=== PATIENT | female | born 1975 | race Caucasian/White ===

== ENCOUNTER 2018-05-11 13:43 | Emergency (ER) | payer BC, OTHER ==
[~2018-05-11] VITALS: Ht 157.5 cm; Wt 120.0 kg
[~2018-05-11 13:43] MED LIST: CYCL1PAK PO; GABA300C3 PO; HYDR10SO PO; HYDR12.56 PO; LISI-363 PO; METF500 PO; PSEU1LIQ2 PO
[2018-05-11] MEDS ORDERED: IOHEXOL 350 MG/ML 10 ML VIAL (for RAD DIAG) IVCONTRAST ONE (13:44)
[2018-05-11 13:50] VITALS: BP 167/75; PULSE 96; RESP 16; TEMP 98; O2SAT 99
[2018-05-11] MEDS ORDERED: LISI10TA3 PO (14:03)
[2018-05-11] MEDS ORDERED: HYDR12.57 PO (14:03)
[2018-05-11] MEDS ORDERED: SODIUM CHLOR 0.9% 1000 ML INJ 1,000 ML IV SCH (14:30)
[2018-05-11] MEDS ORDERED: ONDANSETRON ODT 4 MG TAB PO ONE (14:30)
[2018-05-11 14:31] VITALS: O2SAT 100
--- NOTE | 2018-05-11 14:33 | PD ---
HPI Chief Complaint: Chest Pain Time Seen by Provider: 14:11 Travel History International Travel<30 days: No Contact w/Intl Traveler<30days: No Traveled to known affect area: No History of Present Illness HPI 43-year-old female complains of left-sided chest pain. Patient states that just pain started last night. Patient states the pain is pressure pain intermittent pain localized to the left chest. Patient denies any pain radiation. Patient denies any palpitation diaphoresis. patient denies any fever chills. Patient denies any coughing congestion. Patient states that she has intermittent nausea for the past 3 days. Patient was seen at [facility] and had blood tests and gallbladder ultrasound done yesterday. Patient states that she was told that she has inflamed gallbladder. Patient was given prescription for tramadol and Zofran. Patient states that she is not having left-sided chest pain since last night. Patient states that she had persistent nausea and generalized malaise since this morning. Patient has history of hypertension. Patient denies history of diabetes or hyperlipidemia. Patient is a smoker. Patient denies family history of heart disease. Patient denies any chest pain now. PFSH Past Medical History Cancer: No Cardiovascular Problems: No Diabetes: No Endocrine: Yes (POS) Genitourinary: Yes Hepatitis: No Hiatal Hernia: No Hypertension: Yes Immune Disorder: No Musculoskeletal: No Neurologic: Yes (NUMBNESS L LEG WITH PAIN) Psychiatric: No Reproductive: Yes (POLYCYSTIC OVARIAN SYNDROME) Respiratory: No Immunizations Current: No Thyroid Disease: No Tetanus Vaccination: Unknown Influenza Vaccination: Yes ?: Not Tubal Ligation: Yes Past Surgical History Abdominal Surgery: Yes (, TUBAL) AICD: No Section: Yes Gynecologic Surgery: Yes (C SECTION TUBAL LIGATION) Joint Replacement: No Oral Surgery: Yes (TONSILLECTOMY) Pacemaker: No Tonsillectomy: Yes Social History Alcohol Use: Yes (RARELY) Tobacco Use: Yes (1 PACK PER WEEK ) Substance Use: No Allergies-Medications (Allergen,Severity, Reaction): Coded Allergies: codeine (Unverified Allergy, Severe, INCREASED HEART RATE AND BLOOD PRESSURE, 07/15/17) Uncoded Allergies: NICKEL SHIRA (Adverse Reaction, Unknown, 06/27/16) PT STATES HER BODY REJECTS SHIRA Reported Meds & Prescriptions Reported Meds & Active Scripts Active Reported Hydrochlorothiazide 12.5 Mg Cap 12.5 Mg PO DAILY Lisinopril 10 Mg Tab 10 Mg PO DAILY Review of Systems General / Constitutional: No: Fever Eyes: No: Visual changes HENT: No: Headaches Cardiovascular: Positive: Chest Pain or Discomfort Respiratory: No: Shortness of Breath Gastrointestinal: Positive: Nausea, Abdominal Pain Genitourinary: No: Dysuria Musculoskeletal: No: Pain Skin: No Rash Neurologic: No: Weakness Psychiatric: No: Depression Endocrine: No: Polydipsia Hematologic/Lymphatic: No: Easy Bruising Physical Exam Narrative GENERAL: Well-nourished, well-developed patient. SKIN: Focused skin assessment warm/dry. HEAD: Normocephalic. EYES: No scleral icterus. No injection or drainage. NECK: Supple, trachea midline. No JVD or lymphadenopathy. CARDIOVASCULAR: Regular rate and rhythm without murmurs, gallops, or rubs. RESPIRATORY: Breath sounds equal bilaterally. No accessory muscle use. GASTROINTESTINAL: Abdomen soft, nondistended. Patient has mild to moderate tenderness in palpation epigastric and right upper quadrant of the abdomen. No rebound tenderness. No mass. MUSCULOSKELETAL: No cyanosis, or edema. BACK: Nontender without obvious deformity. No CVA tenderness. Neurologic exam normal. Data Data Last Documented VS Vital Signs Date Time Temp Pulse Resp B/P (MAP) Pulse Ox O2 Delivery O2 Flow Rate FiO2 05/11/18 15:56 66 16 112/59 (76) 100 Room Air 05/11/18 13:50 98.0 Orders Orders Electrocardiogram (05/11/18 ) Electrocardiogram (05/11/18 14:10) Complete Blood Count With Diff (05/11/18 14:10) Basic Metabolic Panel (Bmp) (05/11/18 14:10) Ckmb (Isoenzyme) Profile (05/11/18 14:10) Troponin I (05/11/18 14:10) Chest, Single Ap (05/11/18 14:10) Iv Access Insert/Monitor (05/11/18 14:10) Ecg Monitoring (05/11/18 14:10) Oximetry (05/11/18 14:10) Ed Urine Pregnancytest Poc (05/11/18 14:10) Urinalysis - C+S If Indicated (05/11/18 14:10) Hepatic Functional Panel (05/11/18 14:24) Lipase (05/11/18 14:24) Ct Abd/Pel W Iv Contrast(Rout) (05/11/18 14:24) Sodium Chlor 0.9% 1000 Ml Inj (Ns 1000 M (05/11/18 14:30) Ondansetron Odt (Zofran Odt) (05/11/18 14:30) CKMB (05/11/18 14:15) CKMB% (05/11/18 14:15) Iohexol 350 Inj (Omnipaque 350 Inj) (05/11/18 13:44) Ed Discharge Order (05/11/18 17:07) Labs Laboratory Tests Test 05/11/18 14:15 White Blood Count 8.2 TH/MM3 Red Blood Count 5.08 MIL/MM3 Hemoglobin 13.9 GM/DL Hematocrit 41.4 % Mean Corpuscular Volume 81.4 FL Mean Corpuscular Hemoglobin 27.4 PG Mean Corpuscular Hemoglobin Concent 33.6 % Red Cell Distribution Width 15.0 % Platelet Count 319 TH/MM3 Mean Platelet Volume 7.7 FL Neutrophils (%) (Auto) 64.5 % Lymphocytes (%) (Auto) 26.1 % Monocytes (%) (Auto) 6.6 % Eosinophils (%) (Auto) 2.3 % Basophils (%) (Auto) 0.5 % Neutrophils # (Auto) 5.3 TH/MM3 Lymphocytes # (Auto) 2.1 TH/MM3 Monocytes # (Auto) 0.5 TH/MM3 Eosinophils # (Auto) 0.2 TH/MM3 Basophils # (Auto) 0.0 TH/MM3 CBC Comment DIFF FINAL Differential Comment Urine Color COLORLESS Urine Turbidity CLEAR Urine pH 6.0 Urine Specific [place] 1.004 Urine Protein NEG mg/dL Urine Glucose (UA) NEG mg/dL Urine Ketones NEG mg/dL Urine Occult Blood NEG Urine Nitrite NEG Urine Bilirubin NEG Urine Urobilinogen LESS THAN 2.0 MG/DL Urine Leukocyte Esterase NEG Urine WBC LESS THAN 1 /hpf Urine Squamous Epithelial Cells 3 /hpf Microscopic Urinalysis Comment CULT NOT INDICATED Blood Urea Nitrogen 10 MG/DL Creatinine 0.91 MG/DL Random Glucose 136 MG/DL Calcium Level 9.0 MG/DL Sodium Level 139 MEQ/L Potassium Level 3.6 MEQ/L Chloride Level 106 MEQ/L Carbon Dioxide Level 22.0 MEQ/L Anion Gap 11 MEQ/L Estimat Glomerular Filtration Rate 68 ML/MIN Total Bilirubin 0.4 MG/DL Direct Bilirubin 0.1 MG/DL Indirect Bilirubin 0.3 MG/DL Aspartate Amino Transf (AST/SGOT) 15 U/L Alanine Aminotransferase (ALT/SGPT) 28 U/L Alkaline Phosphatase 99 U/L Total Creatine Kinase 130 U/L Creatine Kinase MB 0.6 NG/ML Troponin I LESS THAN 0.02 NG/ML Total Protein 8.1 GM/DL Albumin 4.0 GM/DL Lipase 138 U/L [facility] Medical Decision Making Medical Screen Exam Complete: Yes Emergency Medical Condition: Yes Differential Diagnosis Differential diagnosis including musculoskeletal, angina, OH, PE, pneumothorax, gastritis, PUD, pancreatitis, cholecystitis, colitis, UTI, pyelonephritis, nephrolithiasis. Narrative Course 43-year-old female with left-sided chest pain, epigastric and right upper quadrant abdominal pain. Diagnosis Primary Impression: Atypical chest pain Patient Instructions: General Instructions Additional Instructions: Take medication as directed. Follow-up with personal physician. Return immediately if increasing chest pain shortness of breath. Med/Other Pt SpecificInfo: Prescription(s) given Scripts Ondansetron Odt (Zofran Odt) 4 Mg Tab 4 MG SL Q6HR Y for Nausea/Vomiting, #12 TAB 0 Refills Prov: Maxi Grimm MD 05/11/18 Pantoprazole (Protonix) 40 Mg Tab 40 MG PO DAILY for Reflux, #30 TAB 0 Refills Prov: Maxi Grimm MD 05/11/18 Disposition: 01 DISCHARGE HOME Condition: Stable Maxi Grimm MD May 11, 2018 14:33
[2018-05-11 14:34] VITALS: BP 124/58; PULSE 83; RESP 17; O2SAT 97
--- NOTE | 2018-05-11 14:48 | RADRPT ---
EXAM DATE: 05/11/2018 2:45 PM EDT AGE/SEX: 43 years / Female INDICATIONS: Chest tightness, nausea CLINICAL DATA: This is the patient's initial encounter. Patient reports that signs and symptoms have been present for 4 - 6 days and indicates a pain score of 4/10. MEDICAL/SURGICAL HISTORY: . smokes . lumbar spine surgery, tubes tied COMPARISON: [facility], CHEST SINGLE AP, 08/06/2015. . FINDINGS: A single AP view of the chest demonstrates the lungs to be symmetrically aerated without evidence of mass, infiltrate or effusion. The cardiomediastinal contours are unremarkable. Osseous structures a re intact. CONCLUSION: Negative examination. Electronically signed by: Elton Madrigal MD 05/11/2018 2:47 PM EDT
[2018-05-11 15:01] LABS: AUTOMATED NEUTROPHIL # 5.3 TH/MM3 (1.8-7.7); BASOPHIL % 0.5 % (0.0-2.0); EOSINOPHIL # 0.2 TH/MM3 (0-0.4); EOSINOPHIL % 2.3 % (0.0-4.0); HEMATOCRIT 41.4 % (35.0-46.0); HEMOGLOBIN 13.9 GM/DL (11.6-15.3); LYMPH % 26.1 % (9.0-44.0); LYMPHOCYTE # 2.1 TH/MM3 (1.0-4.8); MEAN CELL VOLUME 81.4 FL (80.0-100.0); MEAN CORPUSCULAR HEMOGLOBIN 27.4 PG (27.0-34.0); MEAN CORPUSCULAR HGB CONC 33.6 % (32.0-36.0); MEAN PLATELET VOLUME 7.7 FL (7.0-11.0); MONO % 6.6 % (0.0-8.0); MONOCYTE # 0.5 TH/MM3 (0-0.9); NEUT % 64.5 % (16.0-70.0); PLATELET COUNT 319 TH/MM3 (150-450); RED BLOOD COUNT 5.08 MIL/MM3 (4.00-5.30); WHITE BLOOD COUNT 8.2 TH/MM3 (4.0-11.0)
[2018-05-11 15:07] LABS: BILIRUBIN, URINE NEG (NEG); BLOOD, URINE NEG (NEG); GLUCOSE,URINE NEG (NEG); KETONE, URINE NEG (NEG); NITRITE,URINE NEG (NEG); SQUAMOUS EPITHELIAL CELL URINE 3 /hpf (0-5); URINE COLOR COLORLESS (YELLW/STRAW); URINE LEUKOCYTE ESTERASE NEG (NEG)
[2018-05-11 15:13] LABS: BLOOD UREA NITROGEN 10 MG/DL (7-18); CHLORIDE 106 MEQ/L (98-107); CREATININE 0.91 MG/DL (0.50-1.00); GLOMERULAR FILTRATION RATE 68 ML/MIN (>89); GLUCOSE,RANDOM 136 MG/DL (74-106); SODIUM (NA) 139 MEQ/L (136-145)
[2018-05-11 15:16] LABS: TOTAL BILIRUBIN ADULT 0.4 MG/DL (0.2-1.0); TOTAL PROTEIN 8.1 GM/DL (6.4-8.2)
[2018-05-11 15:17] LABS: TROPONIN I LESS THAN 0.02 NG/ML (0.02-0.05)
[2018-05-11 15:22] LABS: DIRECT BILIRUBIN ADULT 0.1 MG/DL (0.0-0.2); INDIRECT BILIRUBIN 0.3 MG/DL (0.0-0.8)
[2018-05-11 15:56] VITALS: BP 112/59; PULSE 66; RESP 16; O2SAT 100
--- NOTE | 2018-05-11 16:20 | RADRPT ---
EXAM DATE: 05/11/2018 3:48 PM EDT AGE/SEX: 43 years / Female INDICATIONS: Right upper abdomen pain CLINICAL DATA: This is the patient's initial encounter. Patient reports that signs and symptoms have been present for 1 day and indicates a pain score of 6/10. MEDICAL/SURGICAL HISTORY: Hypertension. section. Tubal ligation. ORAL CONTRAST: No oral contrast ingested. RADIATION DOSE: 27.02 CTDI (mGy) COMPARISON: No prior exams available for comparison. TECHNIQUE: Multiple contiguous axial images were obtained through the abdomen and pelvis following b olus infusion of 91 ml Omnipaque 350 (iohexol) nonionic water-soluble contrast as a single exam dos e. No oral contrast ingested. Using automated exposure control and adjustment of the mA and/or kV ac cording to patient size, the radiation dose was kept as low as reasonably achievable to obtain optima l diagnostic quality images. FINDINGS: Lower Lungs: The visualized lower lungs are clear. Liver: The liver has a homogeneously low density without space-occupying lesion. There is no dilation of the biliary tree. The gallbladder is unremarkable. Spleen: Homogeneous density without enlargement. Pancreas: Unremarkable without mass or calcification. Kidneys: Normal in size and shape. No evidence of mass or hydronephrosis. Adrenal Glands: Unremarkable. Aorta: The aorta and proximal iliac vessels are grossly unremarkable without aneurysmal dilation. Bowel/Mesentery: The bowel loops are grossly unremarkable. The cecum and sigmoid colon have a normal configuration. Appendix is normal by CT criteria. Abdominal Wall: Intact. Retroperitoneum: No evidence of adenopathy in the retrocrural, para-aortic, or deep pelvic regions. Bladder: Contours are smooth. Reproductive Organs: The uterus is anteverted. No abnormal masses or calcifications seen. Inguinal: The inguinal region is unremarkable without evidence of adenopathy. Bony Structures: Left unilateral posterior fixation involving L4-L5.. CONCLUSION: 1. No acute abnormality. 2. Hepatic steatosis. Electronically signed by: Cristobal Gordillo MD 05/11/2018 4:18 PM EDT
[2018-05-11] MEDS ORDERED: ZOFR4TAB3 SL (17:10)
[2018-05-11] MEDS ORDERED: PROT40TA PO (17:10)
[2018-05-11 17:30] VITALS: BP 112/59
--- NOTE | 2018-05-11 19:37 | EKG ---
Date Performed: 05/11/2018 Time Performed: 13:19:16 PTAGE: 43 years EKG: Sinus rhythm MINIMAL VOLTAGE CRITERIA FOR LVH, CONSIDER NORMAL VARIANT BORDERLINE ECG Compared to prior electroca rdiogram, rate has decreased . PREVIOUS TRACING : 05/11/2018 13.13 DOCTOR: Nigel Lopez Interpretating Date/Time 05/11/2018 19:35:54
== END 2018-05-11 17:31 | disposition home or self-care (01) ==
LOC: NEPE 13:43
DX: R07.89 Other chest pain (principal); I10 Essential (primary) hypertension; F17.200 Nicotine dependence, unspecified, uncomplicated
CPT/HCPCS: 71045; 74177; 80048; 80076; 81001; 82550; 82552; 83690; 84484; 84703; 85025; 93005; 96360; 99284; J7030; Q9967